=== PATIENT | male | born 1955 | race Caucasian/White ===

== ENCOUNTER 2016-11-18 07:03 | Day surgery (SDC) | payer OTHER ==
--- NOTE | 2016-11-17 22:45 | GHP ---
[f rep st] PREOP HISTORY AND PHYSICAL DATE OF ADMISSION: 11/18/2016 PREOPERATIVE DIAGNOSIS: Wound dehiscence following a left Achilles tendon repair. PLANNED PROCEDURES: I and D with wound closure, left ankle. HISTORY OF PRESENT ILLNESS: The patient is a 61-year-old male, who underwent an Achilles tendon rep air by myself about 3 weeks ago. The wound has dehisced. Decision has been made to proceed with a formal I and D and closure in the operating room. PRIOR MEDICAL HISTORY: Hypertension. PRIOR SURGICAL HISTORY: Achilles tendon repair. MEDICATIONS: Amlodipine, chlorthalidone, Keflex, lisinopril. ALLERGIES: Seasonal allergies. 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 Smokes half pack per day. Moderate a lcohol intake. REVIEW OF SYSTEMS: No shortness of breath, or chest pain. Otherwise review of systems is negative. PHYSICAL EXAMINATION: VITAL SIGNS: Blood pressure is 137/90, heart rate 83, respiratory rate is 16 on room air. He weighs 245 pounds. GENERAL: He is alert and oriented x3. HEENT: Normocephalic atraumatic. Extraocular muscles intact. NECK: Supple. There is no lymphadenopathy. No JVD. JOJO ST: Clear to auscultation. CARDIOVASCULAR: Regular rate and rhythm. ABDOMEN: Soft, nontender, n ondistended. EXTREMITY: Focused on the left ankle, shows a dehisced wound throughout its entirety. There were no signs of infection. Sutures were remaining on the lateral aspect of the wound. Pedrito f is otherwise soft. He has 1+ dorsalis pedis and posterior tibial pulses. ASSESSMENT: Wound dehiscence following Achilles tendon repair, left ankle. PLAN: The patient and I discussed surgical irrigation and debridement with wound closure. He is in agreement with that plan. We started him on Keflex today in the office. He will continue that pos toperatively. We will give him a dose of Ancef preoperatively tomorrow before surgery, and he will go back into the boot postoperatively. Risks and benefits including potential for continued nonheal ing wound and need for additional surgery were discussed. He understands these risks and wishes to proceed. /[id number]/MODL
[~2016-11-18 07:03] MED LIST: BACITRACIN 50,000 UNITS/10 ML SYR IRR ONE; BUPIVACAINE/EPI 0.5% 30 ML SDV ONE; POLYMYXIN B SULFATE 500,000 UNIT/10 ML SYR IRR ONE
[2016-11-18] MEDS ORDERED: BUPIVACAINE/EPI 0.5% 30 ML SDV ONE (07:33)
[2016-11-18] MEDS ORDERED: MIDAZOLAM 2 MG/2 ML VIAL ONE (08:23)
[2016-11-18] MEDS ORDERED: PROPOFOL 200 MG/20 ML VIAL ONE (08:24)
[2016-11-18] MEDS ORDERED: fentaNYL 100 MCG/2 ML INJ ONE ×3 (08:24→09:56)
[2016-11-18] MEDS ORDERED: KETOROLAC 30 MG/1 ML SDV ONE (08:27)
[2016-11-18] MEDS ORDERED: DEXAMETHASONE 4 MG/ML VIAL ONE (08:27)
[2016-11-18] MEDS ORDERED: LIDOCAINE 2% 5 ML SDV ONE (08:27)
[2016-11-18] MEDS ORDERED: ceFAZolin 2 GM/DEXTROSE 100 ML IV ONE (08:30)
[2016-11-18] MEDS ORDERED: LR 1,000 ML IV ONE (09:03)
[2016-11-18] MEDS ORDERED: HYDROCODONE/APAP 5/325 TAB ONE (11:07)
--- NOTE | 2016-11-18 11:16 | GOP ---
[f rep st] OPERATIVE REPORT DATE OF OPERATION: 11/18/2016 SURGEON: Roman Alejo MD ANESTHESIA: General. ANESTHESIOLOGIST: Dr. Han. PREOPERATIVE DIAGNOSIS: Wound dehiscence, left ankle following Achilles tendon repair. POSTOPERATIVE DIAGNOSIS: Wound dehiscence, left ankle following Achilles tendon repair. PROCEDURE PERFORMED: 1. Irrigation debridement soft tissue and tendon, left ankle. 2. Wound closure. FINDINGS: ESTIMATED BLOOD LOSS: Minimal INDICATIONS: The patient is a 61-year-old male, who underwent an open Achilles tendon repair about 3 weeks ago. He dehisced his wound. He was evaluated in clinic yesterday and he was brought to the OR today for irrigation, debridement and closure of the wound. DESCRIPTION OF PROCEDURE: After appropriate informed consent was obtained, patient was taken to the operating room and placed supine on the operating table. Time-out was performed. Patient was iden tified. Correct site was identified. Received 2 g of Ancef following induction of general endotrac heal tube anesthesia. Left lower extremity was prepped and draped in usual sterile fashion. Exsang uinated the limb, inflated the tourniquet to 250 mmHg. Total tourniquet time was 26 minutes. I afshan rided the wound. There was no obvious sign of infection. The skin edges were freshened with a new sharp 10 blade. I then irrigated the wound with normal saline and placed deep layer of 2-0 Vicryl, followed by 3-0 nylon in interrupted fashion. I placed 10 mL of 0.5% Marcaine plain, placed a steri le silver impregnated dressing. Patient was awakened from anesthesia, taken to recovery room in sat isfactory condition. There were no immediate intraoperative complications. TOTAL TOURNIQUET TIME: 26 minutes at 250 mmHg /[id number]/MODL
== END 2016-11-18 11:30 | disposition home or self-care (01) ==
LOC: FSGY 07:03
PROVIDERS: ATTEND Orthopaedic Surgery
PROC: 0HQLXZZ Repair Left Lower Leg Skin, External Approach (ICD-10-PCS; principal; 2016-11-18 08:30)
PROC: 0JBP0ZZ Excision of Left Lower Leg Subcutaneous Tissue and Fascia, Open Approach (ICD-10-PCS; principal; 2016-11-18 08:30)
DX: T81.30XA Disruption of wound, unspecified, initial encounter (principal); Y65.8 Other specified misadventures during surgical and medical care; I10 Essential (primary) hypertension; F17.210 Nicotine dependence, cigarettes, uncomplicated; E66.9 Obesity, unspecified; Z68.33 Body mass index [BMI] 33.0-33.9, adult
CPT/HCPCS: J0690; J1100; J1885; J2250; J2704; J3010